=== PATIENT | female | born 1995 | race African-American/Black ===

== ENCOUNTER 2020-10-21 12:19 | Emergency (ER) | payer MEDICAID ==
[~2020-10-21] VITALS: Ht 162.6 cm; Wt 106.8 kg
[2020-10-21 12:25] VITALS: TEMP 98.9
[2020-10-21 13:15] LABS: BASO % 0.3 % (0.0-2.0); EOS # 0.4 (0.0-0.7); EOS % 2.9 % (0-4.0); GRAN # 10.7 (1.4-6.5); GRAN % 80.4 % (42.2-75.2); HEMATOCRIT 37.1 % (37.0-47.0); HEMOGLOBIN 12.3 g/dl (12.5-16.0); LYMPH # 1.3 (1.2-3.4); MEAN CELL VOLUME 82 fl (80.0-100.0); MEAN CORPUSCULAR HEMOGLOBIN 27 pg (27.0-31.0); MEAN CORPUSCULAR HGB CONC 33 g/dl (33.0-37.0); MEAN PLATELET VOLUME 11.1 fl (7.4-10.4); MONO # 0.8 (0.1-0.6); PLATELET COUNT 201 K/mm3 (130-400); RED BLOOD COUNT 4.51 M/mm3 (4.10-5.30); REDCELL DISTRIBUTION WIDTH-CV 13.9 % (11.5-14.5)
--- NOTE | 2020-10-21 13:19 | NUR ---
1319- EFM on, tracing intermittently, adjusted. Pt denies complications with other than they are "watching her kidney because it is growning small." Pt denies VB, LOF. +FM. 1343- FHR baseline 155 bpm, moderate variability, no decels. No contractions on monitor. Pt denies cramping. EFM and TOCO off.
[2020-10-21 13:24] LABS: MUCOUS Present /lpf; PH 5 (5-8); SQUAMOUS EPITHELIAL 20-50 /hpf; URINE APPEARANCE Cloudy; URINE BACTERIA Moderate /hpf; URINE BILIRUBIN Negative (NEGATIVE); URINE BLOOD Negative (NEGATIVE); URINE COLOR Yellow; URINE GLUCOSE Negative (NEGATIVE); URINE KETONE Negative (NEGATIVE); URINE LEUKOCYTE ESTERASE 2+ (NEGATIVE); URINE NITRATE Negative (NEGATIVE); URINE PROTEIN(semi-quant) Negative (NEGATIVE); URINE UROBILINOGEN Negative (NEGATIVE); URINE WBC 20-50 /hpf
[2020-10-21 13:35] LABS: ALANINE AMINOTRANSFERASE 11 U/L (4-34); ALBUMIN 3.5 gm/dL (3.5-5.0); ALKALINE PHOSPHATASE 61 U/L (50-136); ANION GAP 5 mmol/L (7-16); AST,SGOT 23 U/L (15-37); BILIRUBIN,TOTAL 0.3 mg/dL (0.0-1.0); BLOOD UREA NITROGEN 6 mg/dL (7-17); CALCIUM 8.7 mg/dL (8.4-10.2); CARBON DIOXIDE 22 mmol/L (22-30); CHLORIDE 109 mmol/L (98-107); CREATININE, serum 0.45 (0.52-1.25); GLUCOSE 69 mg/dL (74-106); LIPASE 64 U/L (23-300); POTASSIUM 3.9 mmol/L (3.4-5.0); SODIUM 136 mmol/L (137-145); TOTAL PROTEIN 6.8 gm/dL (6.4-8.2)
[2020-10-21 13:48] LABS: TROPONIN-I < 0.012 ng/mL (0.000-0.035)
[2020-10-21 15:29] LABS: COLLECTION METHOD CATHETER
[2020-10-21 15:33] LABS: COLLECTION METHOD CATHETER
[2020-10-21 15:36] LABS: MUCOUS Present /lpf; PH 6 (5-8); URINE APPEARANCE Hazy; URINE BACTERIA Rare /hpf; URINE BILIRUBIN Negative (NEGATIVE); URINE BLOOD Negative (NEGATIVE); URINE COLOR Yellow; URINE GLUCOSE Negative (NEGATIVE); URINE KETONE Negative (NEGATIVE); URINE LEUKOCYTE ESTERASE Trace (NEGATIVE); URINE NITRATE Negative (NEGATIVE); URINE PROTEIN(semi-quant) Negative (NEGATIVE); URINE RBC 0-2 /hpf; URINE UROBILINOGEN Negative (NEGATIVE)
[2020-10-21] MEDS ORDERED: NORCO 325 MG-51 TAB PO (16:24)
[2020-10-21 16:52] VITALS: BP 126/59; PULSE 85
== END 2020-10-21 16:55 | disposition home or self-care (01) ==
LOC: COL.ER 12:19
PROVIDERS: Nurse Practitioner Primary Care
DX: O26.892 Other specified pregnancy related conditions, second trimester (principal); M54.89 Other dorsalgia; O99.332 Smoking (tobacco) complicating pregnancy, second trimester; F17.210 Nicotine dependence, cigarettes, uncomplicated; Z3A.25 25 weeks gestation of pregnancy
CPT/HCPCS: J0696; J7030; Q9967

== ENCOUNTER 2020-11-02 21:27 | Outpatient (CLI) | payer MEDICAID ==
[~2020-11-02] VITALS: Ht 165.1 cm; Wt 106.8 kg
[~2020-11-02 21:27] MED LIST: NORCO 325 MG-51 TAB PO
--- NOTE | 2020-11-02 21:35 | NUR ---
2134- PT PRESENTS TO LDR COMPLAINING OF DECREASED MOVEMENT, AMBULATORY TO ROOM LR3. 2144- EFM X2 APPLIED. MOVEMENT HEARD ON MONITOR. PT STATES SHE STILL DOES NOT FEEL IT. STATES IT HAS BEEN POSSIBLY A DAY SINCE SHE HAS FELT MOVEMENT. PT ALSO STATES SHE JUST WOKE UP FROM A LONG NAP RIGHT BEFORE SHE CAME HERE. EDUCATION ON KICK COUNTS AND USING A QUIET ENVIRONMENT GIVEN. PT STATES HER WIRE HARNESS ASSEMBLER DID TELL HER SHE HAD AN ANTERIOR PLACENTA. DISCUSSED HOW THAT CAN EFFECT MOVEMENT WELL. 2209- PT STATES SHE HAS FELT AT LEAST 2 BIG MOVEMENTS FROM BABY. MOVEMENT STILL HEARD WELL ON MONITORS. 222- NURSE TO BEDSIDE. MONITORS ADJUSTED. MOVEMENT NOTED. 223- PT OFF MONITORS. 223- DR CLARK CALLED CHARTED. DISMISSAL ORDER RECEIVED. 2245- DISMISSAL INSTRUCTIONS GIVEN. PT VERBALIZES UNDERSTANDING. PT DISMISSED TO HOME AMBULATORY ACCOMPANIED BY BOYFRIEND.
[2020-11-02] MEDS ORDERED: PROAIR HFA0.09 MG/AC IH (22:02)
[2020-11-02] MEDS ORDERED: PRENATAL VITAMI1 TA3 PO (22:03)
[2020-11-02 22:25] VITALS: BP 130/72; PULSE 84; TEMP 98.6
== END 2020-11-02 22:45 | disposition home or self-care (01) ==
LOC: LDRO 21:27 → LDR 21:52 → LDRO 22:45
DX: O36.8190 Decreased fetal movements, unspecified trimester, not applicable or unspecified (principal); Z3A.00 Weeks of gestation of pregnancy not specified
CPT/HCPCS: OP

== ENCOUNTER 2021-01-15 12:42 | Outpatient (CLI) | payer MEDICAID ==
[~2021-01-15] VITALS: Ht 165.1 cm; Wt 123.6 kg
[~2021-01-15 12:42] MED LIST changes: +PRENATAL VITAMI1 TA3 PO; +PROAIR HFA0.09 MG/AC IH
--- NOTE | 2021-01-15 12:50 | NUR ---
Patient arrives ambulatory with FOB with complaints of back pain and abdominal cramping since this morning. Patient reports intercourse last night and reports she has not been drinkning much water today. Patient denies ROM or vaginal bleeding, reports slightly decreased movement. Patient states "she is moving the same, just not as big". Patient is seen with Kelle Biggs, records requested. 1255- SVE FT/thick/high. Patient repositioned WL and updated on plan of care. See physician notification. Assessment completed.
[2021-01-15] MEDS ORDERED: PROVENTIL0.09 MG/A1 IH (13:08)
[2021-01-15 13:35] VITALS: BP 142/93; PULSE 94; TEMP 98.1
--- NOTE | 2021-01-15 13:39 | NUR ---
DISCHARGE INSTRUCTIONS REVIEWED AND UNDERSTOOD, PT AGREEABLE TO PLAN OF CARE AND EDUCATED THOROUGHLY ON SYMPTOM MONITORING, DENIES FURTHER QUESTIONS OR CONCERNS
--- NOTE | 2021-01-15 13:40 | NUR ---
Patient given discharge instructions. Reviewed labor precautions and kick counts, patient will follow up tomorrow with hand grinder. patient denies questions and leaves ambulatory.
== END 2021-01-15 13:40 | disposition home or self-care (01) ==
LOC: LDRO 12:42 → LDR 13:21 → LDRO 13:40
DX: Z34.90 Encounter for supervision of normal pregnancy, unspecified, unspecified trimester (principal); Z3A.00 Weeks of gestation of pregnancy not specified
CPT/HCPCS: OP